=== PATIENT | female | born 1950 | race Hispanic/Latino ===

== ENCOUNTER 2021-10-19 23:28 | Observation (INO) | payer MEDICARE ==
[2021-10-20] MEDS ORDERED: Nitroglycerin 0.4 MG TAB (25 Tab Bottle) SL PRN ×2 (00:06→10:17)
[2021-10-20 00:13] VITALS: BMI 29.2
[2021-10-20] MEDS ORDERED: Enoxaparin Sodium 40 MG/0.4 ML SYRINGE SC SCH ×2 (00:15→21:00)
[2021-10-20] MEDS: Nitroglycerin 2% Ointment 1 INCH/1 GM Packet TOP SCH ×3 (00:35→18:21)
[2021-10-20 01:20] LABS: Magnesium 2.1 mg/dL (1.6-2.6)
[2021-10-20 01:28] LABS: Troponin I 0.014 ng/mL (< 0.028)
[2021-10-20 02:05] LABS: SARS-CoV-2 NAA Rapid Test Not Detected (NotDetected)
[2021-10-20 03:41] LABS: #Eosinphils 0.1 10x3/uL (0.0-0.5); #Monocytes 0.7 10x3/uL (0.0-1.1); #Neutrophils 3.3 10x3/uL (1.5-8.4); %Basophils 0.5 % (0.0-2.0); %Eosinophils 1.8 % (0.0-6.0); %Lymphocytes 32.1 % (18.0-47.0); %Monocytes 10.8 % (0.0-10.0); %Neutrophils 54.5 % (40.0-75.0); Hemoglobin 13.3 g/dL (12.0-15.5); Mean Corpuscular HGB CONC 34.1 g/dL (32.0-36.0); Mean Corpuscular Hemoglobin 32.9 pg (27.0-33.0); Mean Corpuscular Volume 96.5 fl (81.6-98.3); Mean Platelet Volume 10.9 fl (7.4-10.4); RBC Distribution Width 13.2 % (11.5-14.5); Red Blood Cell (RBC) Count 4.04 10x6/uL (3.90-5.03)
[2021-10-20 03:42] LABS: Platelet Count 133 10x3/uL (150-450)
[2021-10-20 03:51] LABS: Anion Gap 10 mmol/L (10-20); Calc. Creatinine Clearance 58 mL/min (70-130); Calcium 9.3 mg/dL (7.8-10.44); Carbon Dioxide 24 mmol/L (23-31); Cardiac Risk 3.9 (Less than 4.5); Chloride 112 mmol/L (98-107); Cholesterol 162 mg/dl (< 200 Desired); Glucose 138 mg/dL (80-115); HDL Cholesterol 42 mg/dL (>60 Neg Risk); LDL Cholesterol, Calculated 88 mg/dL; Potassium 4.4 mmol/L (3.5-5.1); Sodium 142 mmol/L (136-145); Triglycerides 158 mg/dL (Less than 150)
[2021-10-20 04:00] LABS: Troponin I 0.011 ng/mL (< 0.028)
[2021-10-20 04:02] LABS: BUN (Urea Nitrogen) 16 mg/dL (9.8-20.1)
[2021-10-20] MEDS: Levothyroxine Sodium 125 MCG TAB PO SCH (06:02)
[2021-10-20] MEDS: CeleCOXIB 100 MG CAP PO SCH ×2 (08:19→20:45)
[2021-10-20] MEDS: Ascorbic Acid 500 mg Chewable Tablet PO SCH (08:20)
[2021-10-20] MEDS: Aspirin Chewable 81 MG TAB PO SCH (08:20)
[2021-10-20] MEDS: Lisinopril 10 MG TAB PO SCH (08:21)
[2021-10-20] MEDS: DULoxetine 30 MG CAP PO SCH ×2 (08:21→20:45)
[2021-10-20] MEDS: Carvedilol 12.5 MG TAB PO SCH ×2 (08:21→18:48)
[2021-10-20] MEDS ORDERED: CATH Communication Order-Pharmacy FS SCH (08:45)
[2021-10-20] MEDS ORDERED: Nitroglycerin 50 MG/250 ML BOT 250 ML ONE (08:55)
[2021-10-20] MEDS ORDERED: Lidocaine 1% PF 5 ML VIAL ONE (08:55)
[2021-10-20] MEDS ORDERED: Heparin 10,000 UNITS/ 10 ML VIAL ONE (08:55)
[2021-10-20] MEDS ORDERED: Adenosine 6 MG/2 ML VIAL ONE (08:56)
[2021-10-20] MEDS ORDERED: Verapamil 5 MG/2 ML VIAL ONE (08:56)
[2021-10-20] MEDS ORDERED: Sodium Chloride 0.9% 1,000 ML ONE (08:57)
[2021-10-20] MEDS ORDERED: Bivalirudin 250 MG VIAL ONE (08:57)
[2021-10-20] MEDS ORDERED: Midazolam HCl 2 mg/2 ml Vial ONE (09:32)
[2021-10-20] MEDS ORDERED: Fentanyl 100 MCG/2 ML VIAL ONE (09:32)
[2021-10-20] MEDS ORDERED: Sodium Chloride 0.9% 200 ML IV PRN (10:17)
[2021-10-20 12:58] LABS: Hemoglobin A1c 5.5 % (4.0-6.0)
[2021-10-20] MEDS: Sodium Chloride 0.9% 1,000 ML IV SCH ×2 (13:20→18:22)
[2021-10-20] MEDS ORDERED: Loperamide HCl 2 MG CAP PO PRN (17:38)
[2021-10-20] MEDS: Brimonidine Tartrate 0.2% Ophth Soln 5 ml Bottle EA EYE SCH ×2 (20:44→20:58)
[2021-10-20] MEDS ORDERED: Montelukast Sodium 10 mg Tablet PO SCH (21:00)
[2021-10-20] MEDS ORDERED: Atorvastatin Calcium 40 MG TAB PO SCH (21:00)
[2021-10-20] MEDS ORDERED: [UNRECOGNIZED DRUG - OTHER] PO SCH (21:00)
[2021-10-20] MEDS ORDERED: Atorvastatin Calcium 10 MG TAB PO SCH (21:00)
[2021-10-20] MEDS ORDERED: CHOLECALCIFEROL 10000 UNIT PO SCH (21:00)
[2021-10-20] MEDS ORDERED: Fish Oil 1,000 MG CAP PO SCH (21:00)
[2021-10-20] MEDS ORDERED: Non-Formulary Medication 1 EACH (Iron [Iron] 18 MG Tablet) PO SCH (21:00)
[2021-10-21] MEDS: Nitroglycerin 2% Ointment 1 INCH/1 GM Packet TOP SCH ×2 (00:15→08:51)
[2021-10-21] MEDS: Sodium Chloride 0.9% 1,000 ML IV SCH ×2 (04:36→08:52)
[2021-10-21] MEDS: Levothyroxine Sodium 125 MCG TAB PO SCH (06:19)
[2021-10-21] MEDS: Ascorbic Acid 500 mg Chewable Tablet PO SCH (08:51)
[2021-10-21] MEDS: DULoxetine 30 MG CAP PO SCH (08:51)
[2021-10-21] MEDS: Aspirin Chewable 81 MG TAB PO SCH (08:51)
[2021-10-21] MEDS: CeleCOXIB 100 MG CAP PO SCH (08:51)
[2021-10-21] MEDS: Carvedilol 12.5 MG TAB PO SCH (08:51)
[2021-10-21] MEDS: Lisinopril 10 MG TAB PO SCH (08:51)
[2021-10-21] MEDS ORDERED: Hydrochlorothiazide 25 MG TAB PO SCH (10:00)
[2021-10-21] MEDS ORDERED: Lisinopril 10 MG TAB PO SCH (10:00)
[2021-10-21] MEDS ORDERED: hydrALAZINE 25 MG TAB PO SCH ×2 (11:00→15:00)
[2021-10-21 13:12] VITALS: BP 167/72; TEMP 97.6
[2021-10-22] MEDS ORDERED: Lisinopril 20 MG TAB PO SCH (09:00)
[2021-10-22] MEDS ORDERED: Hydrochlorothiazide 25 MG TAB PO SCH (09:00)
== END 2021-10-21 14:42 | disposition home or self-care (01) ==
LOC: UNDOADMOB 23:28 → CSHTELE 23:28
PROVIDERS: ADMIT Family Medicine; ATTEND Internal Medicine
DX: R07.89 Other chest pain (principal); I34.0 Nonrheumatic mitral (valve) insufficiency; I35.1 Nonrheumatic aortic (valve) insufficiency; I10 Essential (primary) hypertension; E78.5 Hyperlipidemia, unspecified; J44.9 Chronic obstructive pulmonary disease, unspecified; F17.210 Nicotine dependence, cigarettes, uncomplicated; G43.909 Migraine, unspecified, not intractable, without status migrainosus; Z20.822 Contact with and (suspected) exposure to COVID-19; Z79.899 Other long term (current) drug therapy; Z79.51 Long term (current) use of inhaled steroids; Z88.8 Allergy status to other drugs, medicaments and biological substances; Z88.5 Allergy status to narcotic agent; Z88.6 Allergy status to analgesic agent
CPT/HCPCS: 80048; 80061; 83036; 83735; 84443; 84484 ×2; 85025; 93005; 93306; 93458; 96372; G0378 ×2; U0002; 36415; 93010; 99152; J0153; J0583; J1644; J1650; J2250; J3010; J7050